=== PATIENT | male | born 1955 | race Caucasian/White ===

== ENCOUNTER → 2018-11-22 | Outpatient (CLI) | payer BC ==
--- NOTE | 2018-11-22 16:13 | Diagnostic Imaging Report ---
EXAM: CHEST 2 VIEWS DATE: 11/22/2018 3:47 PM INDICATION: Chest congestion COMPARISON: None FINDINGS: Lines and tubes: None Heart size normal. No focal pulmonary opacity, pleural effusion or pneumothorax. Upper abdomen unremarkable. No acute bony abnormality. IMPRESSION: No evidence for acute disease. Signed by: Dr. Sal Martinez M.D. on 11/22/2018 4:10 PM
== END ==
LOC: RAD 15:35
DX: R09.89 Other specified symptoms and signs involving the circulatory and respiratory systems (principal)
CPT/HCPCS: 71046